=== PATIENT | male | born 1955 | race Caucasian/White ===

== ENCOUNTER 2017-05-27 09:21 | Emergency (ER) | payer OTHER ==
[~2017-05-27] VITALS: Ht 188 cm; Wt 120.0 kg
[2017-05-27 10:11] LABS: IMMATURE GRANULOCYTES 0.6 % (0.0-1.0); MEAN CELL VOLUME 84.9 fL CALC (80.0-100.0); MEAN CORPUSCULAR HGB 25.5 pG CALC (26.0-32.0); NEUT# 2.73 thou/uL (1.82-7.42); RED BLOOD COUNT 2.12 mill/uL (4.70-6.10); RED CELL DISTRI WIDTH 15.8 % (11.5-15.5)
[2017-05-27 10:16] LABS: ALBUMIN 3.3 g/dL (3.2-5.0); ALKALINE PHOSPHATASE 95 u/l (38-126); ANION GAP 10 (6-22 (CALC)); BILIRUBIN, TOTAL 0.9 mg/dL (0.0-1.4); BUN 18 mg/dL (9-20); BUN/CREATININE RATIO 20 (12-20 (CALC)); CALCIUM 8.3 mg/dL (8.4-10.2); CARBON DIOXIDE 24 mmol/l (22-30); CHLORIDE 104 mmol/l (95-108); CREATININE 0.9 mg/dL (0.7-1.3); GFR > 60 ML/MIN (>=60 (CALC)); GFR FOR AFR.AMER. > 60 ML/MIN (>=60 (CALC)); GLUCOSE 119 mg/dL (75-110); POTASSIUM 3.4 mmol/l (3.5-5.1); SGOT/AST 133 u/l (17-59); SGPT/ALT 145 u/l (21-72); SODIUM 135 mmol/l (137-146); TOTAL PROTEIN 6.6 g/dL (6.3-8.2)
[2017-05-27 10:21] LABS: HEMOGLOBIN 5.4 g/dl (14.0-18.0)
[2017-05-27 10:27] LABS: MYOGLOBIN 195 ng/mL (0 - 121)
[2017-05-27 10:55] VITALS: BP 119/57
[2017-05-27 11:08] VITALS: BP 106/49
[2017-05-27] MEDS ORDERED: HYDROCHLOROT25 MG PO (11:09)
[2017-05-27] MEDS ORDERED: ZANTAC150 M1 PO (11:09)
[2017-05-27 11:17] VITALS: BP 107/51
[2017-05-27 11:34] VITALS: BP 113/56
[2017-05-27 11:58] VITALS: BP 122/57
== END 2017-05-27 11:58 | disposition short-term general hospital (02) | DRG 379 ==
LOC: ED 09:21
PROVIDERS: Emergency Medicine
PROC: 30233K1 Transfusion of Nonautologous Frozen Plasma into Peripheral Vein, Percutaneous Approach (ICD-10-PCS; principal; 2017-05-27)
PROC: 30233N1 Transfusion of Nonautologous Red Blood Cells into Peripheral Vein, Percutaneous Approach (ICD-10-PCS; 2017-05-27)
PROC: 30233K1 Transfusion of Nonautologous Frozen Plasma into Peripheral Vein, Percutaneous Approach (ICD-10-PCS; 2017-05-27)
DX: K92.2 Gastrointestinal hemorrhage, unspecified (principal); D64.9 Anemia, unspecified; I10 Essential (primary) hypertension; B19.20 Unspecified viral hepatitis C without hepatic coma; D69.6 Thrombocytopenia, unspecified
CPT/HCPCS: P9016; S0164

== ENCOUNTER 2017-06-02 18:19 | Emergency (ER) | payer OTHER ==
[~2017-06-02] VITALS: Ht 188 cm; Wt 110.0 kg
[~2017-06-02 18:19] MED LIST: HYDROCHLOROT25 MG PO; ZANTAC150 M1 PO
[2017-06-02 19:14] LABS: HEMATOCRIT 28.4 % (39.0-50.0); HEMOGLOBIN 8.8 g/dl (14.0-18.0); IMMATURE GRANULOCYTES 0.6 % (0.0-1.0); MEAN CELL VOLUME 84.5 fL CALC (80.0-100.0); MEAN CORPUSCULAR HGB 26.2 pG CALC (26.0-32.0); NEUT# 3.18 thou/uL (1.82-7.42); RED BLOOD COUNT 3.36 mill/uL (4.70-6.10); RED CELL DISTRI WIDTH 14.8 % (11.5-15.5)
[2017-06-02 19:32] LABS: ALBUMIN 3.1 g/dL (3.2-5.0); ALKALINE PHOSPHATASE 101 u/l (38-126); ANION GAP 14 (6-22 (CALC)); BILIRUBIN, TOTAL 0.5 mg/dL (0.0-1.4); BUN 12 mg/dL (9-20); BUN/CREATININE RATIO 15 (12-20 (CALC)); CALCIUM 8.4 mg/dL (8.4-10.2); CARBON DIOXIDE 25 mmol/l (22-30); CHLORIDE 108 mmol/l (95-108); CREATININE 0.8 mg/dL (0.7-1.3); GFR > 60 ML/MIN (>=60 (CALC)); GFR FOR AFR.AMER. > 60 ML/MIN (>=60 (CALC)); GLUCOSE 119 mg/dL (75-110); POTASSIUM 3.9 mmol/l (3.5-5.1); SGOT/AST 73 u/l (17-59); SGPT/ALT 107 u/l (21-72); SODIUM 143 mmol/l (137-146); TOTAL PROTEIN 6.3 g/dL (6.3-8.2)
[2017-06-02] MEDS ORDERED: BACTRIM DS1 TAB PO (19:33)
[2017-06-02 19:44] LABS: MYOGLOBIN 43 ng/mL (0 - 121)
[2017-06-02 20:13] VITALS: BP 97/56
== END 2017-06-02 20:23 | DRG 310 ==
LOC: ED 18:19
PROVIDERS: Emergency Medicine
DX: I47.1 Supraventricular tachycardia (principal); D69.6 Thrombocytopenia, unspecified; I10 Essential (primary) hypertension; B19.20 Unspecified viral hepatitis C without hepatic coma

== ENCOUNTER 2017-07-19 14:44 | Emergency (ER) | payer OTHER ==
[~2017-07-19] VITALS: Ht 188 cm; Wt 118.0 kg
[~2017-07-19 14:44] MED LIST changes: +BACTRIM DS1 TAB PO
[2017-07-19 15:57] LABS: HEMATOCRIT 21.5 % (39.0-50.0); IMMATURE GRANULOCYTES 0.3 % (0.0-1.0); MEAN CELL VOLUME 73.4 fL CALC (80.0-100.0); MEAN CORPUSCULAR HGB 20.1 pG CALC (26.0-32.0); MEAN CORPUSCULAR HGB CONC 27.4 g/L CALC (32.0-36.0); NEUT# 2.62 thou/uL (1.82-7.42); RED BLOOD COUNT 2.93 mill/uL (4.70-6.10); RED CELL DISTRI WIDTH 17.2 % (11.5-15.5)
[2017-07-19 16:03] LABS: HEMOGLOBIN 5.9 g/dl (14.0-18.0)
[2017-07-19 16:16] LABS: ALBUMIN 3.6 g/dL (3.2-5.0); ALKALINE PHOSPHATASE 83 u/l (38-126); ANION GAP 16 (6-22 (CALC)); BILIRUBIN, TOTAL 0.9 mg/dL (0.0-1.4); BUN 17 mg/dL (9-20); BUN/CREATININE RATIO 16 (12-20 (CALC)); CARBON DIOXIDE 23 mmol/l (22-30); CHLORIDE 104 mmol/l (95-108); GFR > 60 ML/MIN (>=60 (CALC)); GFR FOR AFR.AMER. > 60 ML/MIN (>=60 (CALC)); GLUCOSE 149 mg/dL (75-110); POTASSIUM 3.5 mmol/l (3.5-5.1); SGOT/AST 81 u/l (17-59); SGPT/ALT 99 u/l (21-72); SODIUM 140 mmol/l (137-146); TOTAL PROTEIN 6.8 g/dL (6.3-8.2)
[2017-07-19 16:28] LABS: MYOGLOBIN 48 ng/mL (0 - 121)
[2017-07-19] MEDS ORDERED: COREG3.125 MG PO (16:45)
[2017-07-19] MEDS ORDERED: PROTONIX40 M2 PO (16:46)
[2017-07-19 18:11] VITALS: BP 109/68
== END 2017-07-19 18:00 | disposition short-term general hospital (02) | DRG 812 ==
LOC: ED 14:44 → ED-I 16:10 → ED 18:00
PROVIDERS: Emergency Medicine
DX: D50.0 Iron deficiency anemia secondary to blood loss (chronic) (principal); R06.02 Shortness of breath; R50.9 Fever, unspecified; Z86.19 Personal history of other infectious and parasitic diseases

== ENCOUNTER 2017-12-15 14:07 | Observation (INO) | payer OTHER ==
[~2017-12-15] VITALS: Ht 188 cm; Wt 118.0 kg
[2017-12-15] VITALS (10 sets, daily range): BP systolic 103–124; BP diastolic 53–73
[~2017-12-15 14:07] MED LIST changes: +COREG3.125 MG PO; +PROTONIX40 M2 PO
--- NOTE | 2017-12-15 14:25 | NUR ---
WHEELCHAIR TO ER ROOM 15, TO BED
[2017-12-15 14:44] LABS: HEMOGLOBIN 7.2 g/dl (14.0-18.0); IMMATURE GRANULOCYTES 0.5 % (0.0-1.0); MEAN CELL VOLUME 69.5 fL CALC (80.0-100.0); MEAN CORPUSCULAR HGB 17.3 pG CALC (26.0-32.0); MEAN CORPUSCULAR HGB CONC 24.8 g/L CALC (32.0-36.0); NEUT# 2.45 thou/uL (1.82-7.42); RED BLOOD COUNT 4.17 mill/uL (4.70-6.10); RED CELL DISTRI WIDTH 18.8 % (11.5-15.5)
[2017-12-15 14:56] LABS: INTERNATIONAL NORMALIZED RATIO 1.1 RATIO (0.7-1.3); PROTHROMBIN TIME 12.4 SECONDS (9.0-12.5)
[2017-12-15 14:58] LABS: ANION GAP 11 (6-22 (CALC)); BUN 16 mg/dL (8-23); BUN/CREATININE RATIO 16 (12-20 (CALC)); CARBON DIOXIDE 24 mmol/l (22-30); CHLORIDE 108 mmol/l (95-108); GFR > 60 ML/MIN (>=60 (CALC)); GFR FOR AFR.AMER. > 60 ML/MIN (>=60 (CALC)); POTASSIUM 3.9 mmol/l (3.5-5.1); SODIUM 139 mmol/l (137-146)
--- NOTE | 2017-12-15 15:00 | NUR ---
ASSUMED CARE OF PATIENT. PATIENT DENIES ANY PAIN OR DISCOMFORT AT THIS TIME. PATIENT DENIES ANY SOB AT THIS TIME. PATIENT AWAITING LAB RESULTS
--- NOTE | 2017-12-15 15:59 | NUR ---
BLOOD TRANSFUSION STARTED PER MD ORDER PATIENT TOLERATING WELL. PATIENT JACINTO ANY PAIN SOB OR DISCOMFORT AT THIS TIME. PATIENT EDUCATED ON TRANSFUSION REACTIONS WITH SIGNS AND SYMPTOMS. PATIENT VERBALIZES UNDERSTANDING
--- NOTE | 2017-12-15 16:15 | NUR ---
attempted to call report to floor nurse unavailable
--- NOTE | 2017-12-15 16:31 | NUR ---
SECOND ATTEMPT TO CQALL REPORT TO FLOOR NURSE UNAVAILABLE
--- NOTE | 2017-12-15 17:06 | NUR ---
PATIENT RESTING AWAITING TO GIVE REPORT FOR MEDSURG. PATIENT DENIES ANY PAIN, SOB OR DISCOMFORT AT THIS TIME. BLOOD PRODUCT TRANSFUSION CONTINUES AND PATIENT TOLERATING WELL.
--- NOTE | 2017-12-15 17:19 | NUR ---
REPORT CALLED TO [facility] AND PATIENT TRANSPORTED
--- NOTE | 2017-12-15 18:06 | NUR ---
REPORT RECEIVED FROM [facility], PT ARRIVED ON UNIT VIA STRETCHER AND TRANSFERRED TO BED, ALERT AND ORIENTED X 3, DENIES PAIN AT THIS TIME, PRBC INFUSING ON ARRIVAL, VITAL SIGNS MEASURED AND RECORDED. GUARDS X 2 IS WITH PT AT THIS TIME. PT ORIENTED TO ROOM AND CALL [facility], WILL CONTINUE TO MONITOR.
--- NOTE | 2017-12-15 20:00 | NUR ---
BEDSIDE REPORT RECEIVED FROM POLLY LAI. PT SITTING UP IN BED; ALERT AND ORIENTED. 2 GUARDS AT BEDSIDE FROM DCI; PT HAS LUE SHACKLED TO BED. SECOND UNIT OF BLOOD HUNG DURING SHIFT REPORT; PT TOLERATED FIRST UNIT WELL. VS STABLE. DENIES PAIN. RESPIRATIONS EVEN AND UNLABORED ON ROOM AIR. PLAN OF CARE DISCUSSED. PT ENCOURAGED TO VERBALIZE CONCERNS. STATES UNDERSTANDING. SAFETY MEASURES IN PLACE. CALL LIGHT WITHIN REACH.
--- NOTE | 2017-12-16 | NUR ---
PT ASLEEP AT THIS TIME WITH NO SIGNS OF DISTRESS. AWAKENS SPONTANEOUSLY. GUARDS REMAIN AT BEDSIDE. IV SITE APPEARS HEALTHY AND FLUSHES. BLOOD TRANSFUSION HAS COMPLETED; PT TOLERATED WELL. USING URINAL TO VOID. NO REQUESTS OR CONCERNS WHEN AWAKE. SAFETY MEASURES IN PLACE. CALL LIGHT WITHIN REACH.
--- NOTE | 2017-12-16 04:01 | NUR ---
PT ASLEEP AT THIS TIME WITH NO SIGNS OF DISTRESS. RESPIRATIONS EVEN AND UNLABORED ON ROOM AIR. NO ACUTE CHANGES IN CONDITION THROUGHOUT THE NIGHT. SAFETY MEASURES IN PLACE. CALL LIGHT WITHIN REACH.
[2017-12-16 04:18] VITALS: BP 101/61
[2017-12-16 06:39] LABS: HEMATOCRIT 28.9 % (39.0-50.0); HEMOGLOBIN 7.7 g/dl (14.0-18.0); MEAN CELL VOLUME 71.2 fL CALC (80.0-100.0); MEAN CORPUSCULAR HGB CONC 26.6 g/L CALC (32.0-36.0); RED BLOOD COUNT 4.06 mill/uL (4.70-6.10); RED CELL DISTRI WIDTH 18.8 % (11.5-15.5)
[2017-12-16 06:49] LABS: ANION GAP 9 (6-22 (CALC)); BUN 13 mg/dL (8-23); BUN/CREATININE RATIO 14 (12-20 (CALC)); CARBON DIOXIDE 26 mmol/l (22-30); CHLORIDE 106 mmol/l (95-108); CREATININE 0.9 mg/dL (0.7-1.3); GFR > 60 ML/MIN (>=60 (CALC)); GFR FOR AFR.AMER. > 60 ML/MIN (>=60 (CALC)); POTASSIUM 4.2 mmol/l (3.5-5.1); SODIUM 138 mmol/l (137-146)
[2017-12-16 07:50] VITALS: BP 117/69
--- NOTE | 2017-12-16 07:50 | NUR ---
ASSESSMENT IS COMPLTED: IV SITE IS FREE FRM REDNESS OR EDEMA. HR IS REG, PULSES ARE STRONG X4, ABD IS SOFT WITH ACTIVE BS. 2 GUARDS PRESENT IN THE ROOM. TELE MONITOR IN PLACE. CONTINUE TO OBSERVE AND MONITOR
[2017-12-16] MEDS ORDERED: VENOFER20 MG/ML IV (12:06)
[2017-12-16] MEDS ORDERED: FERR SULFATE325 MG PO (12:06)
--- NOTE | 2017-12-16 12:15 | NUR ---
PT IS RELAXING IN BED WITH NO DISTRESS NOTED. IV SITE IS FREE FROM REDNESS OR EDEMA.
[2017-12-16 12:29] VITALS: BP 107/57
--- NOTE | 2017-12-16 12:35 | NUR ---
SPOKE WITH THE [facility], OFFICER SHANKAR. INQUIRING ABOUT THE PT. INFORMED POSSIBLE DISCHARGE TODAY.
--- NOTE | 2017-12-16 14:25 | NUR ---
PT WILL BE HAVING IV THERAPY AT [facility]. CONTINUE TO OSBERVE AND MONITOR.
--- NOTE | 2017-12-16 15:30 | NUR ---
DISCHARGE INSTRUCTIONS GIVEN TO PT AND GUARDS. IV SITE'S WERE DISCONTINUED CATHETER INTACT. INFORMED THEM OF WHAT THE NURSING GRID[employer] MACHINE OPERATOR INFORMED RE: OF IRON BEING INFUSED. Discharge instructions given. Patient verbalizes understanding of same. Discharged in stable condition via [facility]. All belongings sent with pt.
== END 2017-12-16 15:18 | DRG 812 ==
LOC: ED 14:07 → ED-I 15:28 → ED 15:39 → MS2 15:40
PROVIDERS: Family Medicine; ADMIT Internal Medicine; ATTEND Internal Medicine
PROC: 30233N1 Transfusion of Nonautologous Red Blood Cells into Peripheral Vein, Percutaneous Approach (ICD-10-PCS; principal; 2017-12-15)
PROC: 30233N1 Transfusion of Nonautologous Red Blood Cells into Peripheral Vein, Percutaneous Approach (ICD-10-PCS; 2017-12-15)
DX: D50.9 Iron deficiency anemia, unspecified (principal); D69.6 Thrombocytopenia, unspecified; I10 Essential (primary) hypertension; M19.90 Unspecified osteoarthritis, unspecified site; B19.20 Unspecified viral hepatitis C without hepatic coma; Z87.891 Personal history of nicotine dependence; R06.02 Shortness of breath
CPT/HCPCS: J1756; P9016

== ENCOUNTER 2017-12-25 02:34 | Inpatient (IN) | payer OTHER ==
[~2017-12-25] VITALS: Ht 188 cm; Wt 127.0 kg
[2017-12-25] VITALS (22 sets, daily range): BP systolic 71–89; BP diastolic 41–57
[~2017-12-25 02:34] MED LIST changes: +FERR SULFATE325 MG PO; +VENOFER20 MG/ML IV
[2017-12-25] MEDS ORDERED: ASPIRIN81 MG PO (02:55)
[2017-12-25 03:19] LABS: HEMATOCRIT 30.6 % (39.0-50.0); HEMOGLOBIN 8.2 g/dl (14.0-18.0); IMMATURE GRANULOCYTES 0.6 % (0.0-1.0); MEAN CELL VOLUME 74.1 fL CALC (80.0-100.0); MEAN CORPUSCULAR HGB 19.9 pG CALC (26.0-32.0); MEAN CORPUSCULAR HGB CONC 26.8 g/L CALC (32.0-36.0); NEUT# 7.79 thou/uL (1.82-7.42); RED BLOOD COUNT 4.13 mill/uL (4.70-6.10); RED CELL DISTRI WIDTH 22.4 % (11.5-15.5)
[2017-12-25 03:31] LABS: ALBUMIN 3.1 g/dL (3.2-5.0); ALKALINE PHOSPHATASE 66 u/l (38-126); ANION GAP 13 (6-22 (CALC)); BILIRUBIN, TOTAL 1.7 mg/dL (0.0-1.4); BUN 23 mg/dL (8-23); BUN/CREATININE RATIO 19 (12-20 (CALC)); CARBON DIOXIDE 21 mmol/l (22-30); CHLORIDE 105 mmol/l (95-108); CREATININE 1.2 mg/dL (0.7-1.3); GFR > 60 ML/MIN (>=60 (CALC)); GFR FOR AFR.AMER. > 60 ML/MIN (>=60 (CALC)); SGOT/AST 97 u/l (19-48); SGPT/ALT 93 u/l (11-66); SODIUM 136 mmol/l (137-146); TOTAL PROTEIN 6.2 g/dL (6.3-8.2)
[2017-12-25 03:31] LABS: INFLUENZA A NONE DETECTED (NONE DETECT); INFLUENZA B NONE DETECTED (NONE DETECT)
[2017-12-25 03:32] LABS: POTASSIUM 3.1 mmol/l (3.5-5.1)
[2017-12-25 06:23] LABS: URINE BILIRUBIN - DIPSTICK NEGATIVE (NEGATIVE); URINE BLOOD DIPSTICK NEGATIVE (NEGATIVE); URINE COLOR YELLOW; URINE GLUCOSE - DIPSTICK NEGATIVE (NEGATIVE); URINE KETONE TRACE mg/dL (NEGATIVE); URINE LEUK ESTERASE NEGATIVE (NEGATIVE); URINE NITRITE - DIPSTICK NEGATIVE (Negative); URINE PH 5.5 (4.5-8.0); URINE PROTEIN - DIPSTICK 30 mg/dL (NEG-TRACE); URINE SPECIFIC GRAVITY 1.025; URINE UROBILINOGEN - DIPSTICK 0.2 E.U./dL (0.2)
[2017-12-25 06:31] LABS: URINE CLARITY CLEAR
[2017-12-25 06:45] LABS: URINE RBC 0-2 RBC/hpf (0-5); URINE SQUAMOUS EPITHELIAL CELL FEW EPI/hpf (0-FEW); URINE WBC 0-2 WBC/hpf (0-5)
[2017-12-25 06:46] LABS: URINE BACTERIA MODERATE hpf
== END 2017-12-25 10:00 | disposition short-term general hospital (02) | DRG 872 ==
LOC: ED 02:34 → ED-I 03:03 → ED 04:18 → MS2 04:19 → ICU 04:44
PROVIDERS: Emergency Medicine; ADMIT Internal Medicine; ATTEND Internal Medicine
PROC: 0T9B70Z Drainage of Bladder with Drainage Device, Via Natural or Artificial Opening (ICD-10-PCS; principal; 2017-12-25)
PROC: 30233N1 Transfusion of Nonautologous Red Blood Cells into Peripheral Vein, Percutaneous Approach (ICD-10-PCS; 2017-12-25)
DX: A41.9 Sepsis, unspecified organism (principal); L03.116 Cellulitis of left lower limb; M19.90 Unspecified osteoarthritis, unspecified site; B19.20 Unspecified viral hepatitis C without hepatic coma; E87.6 Hypokalemia; I95.9 Hypotension, unspecified; D64.9 Anemia, unspecified; R74.8 Abnormal levels of other serum enzymes
CPT/HCPCS: P9016